=== PATIENT | female | born 2000 | race African-American/Black ===

== ENCOUNTER 2021-11-06 18:40 | Observation (INO) | payer OTHER, SELFPAY ==
[2021-11-06 19:26] VITALS: BMI 18.5
--- NOTE | 2021-11-06 19:30 | PM.IMHP ---
H&P: HPI History of Present Illness Date/Time: 11/06/21 19:30 Chief Complaint: Pyelonephritis. Narrative: This is a pleasant 21-year-old female, 3 para 2, with history of urinary tract infections who is being directly admitted to the medical floor from the ER at [facility] for treatment of pyelonephritis. The reason for transfer is the hospitalist at the outside facility did not feel comfortable taking care of the patient as she is currently 7 weeks . About 2 weeks ago she developed nausea and vomiting which she initially attributed to a viral infection however her symptoms persisted and she had a positive home test last week. She continues to have daily issues with morning sickness however over the past couple of days she has also developed left-sided flank pain with urinary urgency and frequency. She was seen in the ER at [facility] today where she reportedly had a urinalysis consistent with UTI (results not available to me at this time) and with her exam findings there were concerns for pyelonephritis and she is being admitted in this setting. At the time my evaluation she is feeling a bit better after receiving a L of fluids at the outside hospital. She continues to have aching discomfort in the left flank and mid back. She has also been running a low-grade fever with intermittent chills and sweats. She has not been able to hold down much aside from some liquids and Jell-O. Review of Systems Review of Systems: Twelve systems were reviewed. No headache or neck ache. No cold or flu symptoms. No sick contacts. She denies chest pain and shortness of breath. No diarrhea. No vaginal bleeding. Except as documented, all other systems were reviewed and are negative. [facility] Past Medical History Medical History (Updated 11/06/21 @ 21:13 by Shiloh Amaral PA-C) No significant past medical history Surgical History Surgical History (Updated 11/06/21 @ 21:03 by Shiloh Amaral PA-C) No history of previous surgery Family History Family History (Updated 11/06/21 @ 21:04 by Shiloh Amaral PA-C) Other No significant family history Social History Social History (Updated 11/06/21 @ 21:05 by Shiloh Amaral PA-C) Social History: Surrogate decision maker: Abida Foughter, mother. Code status: Full code. Smoking status: Never smoker Second hand tobacco smoke exposure: No Alcohol intake: unknown Substance use type: marijuana Additional living arrangements comments: Lives in [place] with her fiance and 2 children. Additional occupation/education comments: Works at [employer]. Spiritual care concerns: No Meds Home Medications and Allergies Home Medications Medication Instructions Recorded Confirmed Type No Home Medications 11/06/21 11/06/21 History Allergies Allergy/AdvReac Type Severity Reaction Status Date / Time No Known Allergies Allergy Verified 11/06/21 19:57 Vital Signs Vital Signs - 24 hr 11/06/21 20:00 Temperature 100.4 F H Pulse Rate 83 Respiratory Rate 16 Blood Pressure 135/62 Pulse Oximetry 100 Exam Narrative: General: Well-developed female supine in bed. Weight: 53.6 kg. BMI: 18.5. HEENT: PERRL, EOMI. Sclerae anicteric. Tacky mucous membranes. Neck: Supple. Respiratory: Lungs are clear to auscultation bilaterally. Cardiovascular: Regular rate and rhythm with S1-S2. Gastrointestinal: Abdomen is soft, nontender, and nondistended with positive bowel sounds. Left-sided CVA tenderness. Skin: Warm and dry. No rash or lesions on limited exam. Extremities: No cyanosis, clubbing, or edema. Radial and pedal pulses intact. Neurological: Alert. Cranial nerves 2-12 are grossly intact. No gross focal deficits to casual conversation. Psychiatric: Pleasant and cooperative with normal mood and affect. Judgment and insight intact. H&P: Results Labs Labs: Labs obtained at outside facility: White blood cells 11.6, hemoglobin 12.
[2021-11-06 19:38] VITALS: BMI 18.5
[2021-11-06 20:00] VITALS: BP 135/62; PULSE 83; RESP 16; TEMP 38; O2SAT 100
[2021-11-06] MEDS: ACETAMINOPHEN 325 MG TABLET 650 MG PO (21:08)
[2021-11-06] MEDS: THIAMINE HCL INJ 100 MG, FOLIC ACID INJ 1 MG, MULTIVITAMINS-12 INJ VIAL 1 5 ML, MULTIVI... IV CONT (21:49)
[2021-11-06 22:00] VITALS: BP 109/62; PULSE 70; RESP 16; TEMP 37.2; O2SAT 100
[2021-11-07] MEDS: ONDANSETRON INJ 4 MG/2 ML VIAL IV PUSH ×2 (02:52→15:53)
[2021-11-07 06:00] VITALS: BP 101/62; PULSE 76; RESP 16; TEMP 37.3; O2SAT 100
[2021-11-07 06:16] LABS: Hematocrit 33.4 % (37.0-47.0); Hemoglobin 11.5 g/dL (12.0-15.0); Mean Corpuscular HGB Conc 34.4 g/dl (32-36); Mean Corpuscular Hemoglobin 33.2 pg (26-34); Mean Corpuscular Volume 96.5 fl (80-100); Mean Platelet Volume 9.8 fl (7.4-10.4); Platelet Count Result 234 k/mm3 (150-375); Red Blood Count 3.46 M/mm3 (4.2-5.4); Red Cell Distribution Width 12.2 % (11.5-14.5); White Blood Count 9.1 K/mm3 (4.5-10.0)
[2021-11-07 06:27] LABS: Anion Gap 7 mmol/L (8-16); Blood Urea Nitrogen 6 mg/dL (7-17); Calcium 8.4 mg/dL (8.4-10.2); Carbon Dioxide 22 mmol/L (22-30); Chloride 105 mmol/L (98-107); Estimated CRCL calculation 126 ml/min; Estimated Glomerular Filt Rate > 60; Glucose 116 mg/dL (65-110); Magnesium 2.4 mg/dL (1.6-2.3); Potassium 3.7 mmol/L (3.4-5.0); Sodium 134 mmol/L (137-145)
[2021-11-07] MEDS: ACETAMINOPHEN 325 MG TABLET 650 MG PO (08:45)
--- NOTE | 2021-11-07 11:35 | PC.NURSE ---
At 1130 this am pt walked up to nurse's desk and asked the charge nurse if her nurse can come to the room. Charge nurse answered yes and pt walked back to room. Charge nurse told this nurse that pt was asking for her. At 1135 this nurse walked up to the pt room and found that her visitor and pt were arguing. I asked if I could help. Pt informed me that she wants visitor to leave and he was not leaving. I looked at patient visitor and stated, If she wants you to go, then you have to go. Pt visitor cried and protested to leaving. I repeated myself stating, You have to go. Pt visitor then left the area.
[2021-11-07 13:51] VITALS: BP 114/64; PULSE 88; RESP 16; TEMP 37.1; O2SAT 100
--- NOTE | 2021-11-07 14:48 | PM.IMHP ---
H&P: HPI History of Present Illness Date/Time: 11/07/21 14:48 [facility] Past Medical History Medical History (Updated 11/06/21 @ 21:13 by Shiloh Amaral PA-C) No significant past medical history Surgical History Surgical History (Updated 11/06/21 @ 21:03 by Shiloh Amaral PA-C) No history of previous surgery Family History Family History (Updated 11/06/21 @ 21:04 by Shiloh Amaral PA-C) Other No significant family history Social History Social History (Updated 11/06/21 @ 21:05 by Shiloh Amaral PA-C) Social History: Surrogate decision maker: Abida Foughter, mother. Code status: Full code. Smoking status: Never smoker Second hand tobacco smoke exposure: No Alcohol intake: unknown Substance use type: marijuana Additional living arrangements comments: Lives in [place] with her fiance and 2 children. Additional occupation/education comments: Works at [employer]. Spiritual care concerns: No Meds Home Medications and Allergies Home Medications Medication Instructions Recorded Confirmed Type No Home Medications 11/06/21 11/06/21 History Allergies Allergy/AdvReac Type Severity Reaction Status Date / Time No Known Allergies Allergy Verified 11/06/21 19:57 Vital Signs Vital Signs - 24 hr 11/06/21 20:00 11/06/21 22:00 11/07/21 06:00 Temperature 100.4 F H 98.9 F 99.1 F Pulse Rate 83 70 76 Respiratory Rate 16 16 16 Blood Pressure 135/62 109/62 101/62 Pulse Oximetry 100 100 100 11/07/21 13:51 Temperature 98.7 F Pulse Rate 88 Respiratory Rate 16 Blood Pressure 114/64 Pulse Oximetry 100 Exam Narrative: General: Well-developed female supine in bed. Weight: 53.6 kg. BMI: 18.5. HEENT: PERRL, EOMI. Sclerae anicteric. Tacky mucous membranes. Neck: Supple. Respiratory: Lungs are clear to auscultation bilaterally. Cardiovascular: Regular rate and rhythm with S1-S2. Gastrointestinal: Abdomen is soft, nontender, and nondistended with positive bowel sounds. Left-sided CVA tenderness. Skin: Warm and dry. No rash or lesions on limited exam. Extremities: No cyanosis, clubbing, or edema. Radial and pedal pulses intact. Neurological: Alert. Cranial nerves 2-12 are grossly intact. No gross focal deficits to casual conversation. Psychiatric: Pleasant and cooperative with normal mood and affect. Judgment and insight intact. H&P: Results Labs Labs: Short CBC 11/07/21 Range/Units 05:49 WBC 9.1 (4.5-10.0) K/mm3 Hgb 11.5 L (12.0-15.0) g/dL Hct 33.4 L (37.0-47.0) % Plt Count 234 (150-375) k/mm3 [facility] 11/07/21 05:49 Sodium 134 L Potassium 3.7 Chloride 105 Carbon Dioxide 22 BUN 6 L Creatinine 0.50 L Glucose 116 H Calcium 8.4 Assessment and Plan Assessment and plan (1) Pyelonephritis affecting in first trimester: Code(s): O23.01 - Infections of kidney in , first trimester Status: Acute Assessment and Plan: rocephin day 2, will switch to (2) Dehydration: Code(s): E86.0 - Dehydration Status: Acute Assessment and Plan: resolved Quality VTE Prophylaxis VTE prophylaxis: mechanical ordered
--- NOTE | 2021-11-07 15:27 | PM.DS ---
DS: Admitting Diagnosis Discharge Date November 07, 2021 Admitting Diagnosis Acute pyelonephritis in gravid female DS: Discharge Diagnosis Discharge Diagnosis (1) Pyelonephritis affecting in first trimester: Code(s): O23.01 - Infections of kidney in , first trimester Status: Acute (2) Dehydration: Code(s): E86.0 - Dehydration Status: Acute DS: Summary Hospital Course Hospital Course: 21-year-old female with history of UTIs presented to the [facility] ER and was found to have pyelonephritis. They requested transfer to our facility as the patient is and the hospitalist there did not feel comfortable taking care of her. Patient states she is approximately 7 weeks . She has had a 2 week history of nausea and vomiting without any associated fevers or chills. In the ER, she had a urinalysis consistent with UTI as well as CVA tenderness and was started on Rocephin and IV fluids. She does admit to significant nausea with her previous pregnancies, as well. This was continued at transfer. Her symptoms completely resolved. She was given a list of outpatient OB follow-up with and prescription for Keflex to complete a 7 day course of antibiotics. It is important that she follows up with her urine culture with an Ob as they may request antibiotic suppression for the remainder of her and frequent urine culture tests. Time Spent with Patient Time attestation: Total time spent providing and/or coordinating discharge services: Time spent: Less than 30 minutes Exam Const: General: no acute distress HENMT: Mouth: Yes moist mucous membranes Eyes: General: appearance normal, both eyes and all related structures Neck: Neck: no JVD Resp: Auscultation: clear to auscultation bilaterally Cardio: Rate: regular rate Rhythm: regular rhythm GI: Inspection: non-distended GI Palp: Yes Soft to palpation and No Tenderness to palpation present (GI) Psych: Speech and movement: Clear speech present Affect: Sad affect present Thought content: Yes Normal thought content present DS: Data Data Completed and Pending Labs on day of discharge: Labs from last 24 hours 11/07/21 11/07/21 11/06/21 05:49 05:49 21:01 WBC 9.1 RBC 3.46 L Hgb 11.5 L Hct 33.4 L MCV 96.5 MCH 33.2 MCHC 34.4 RDW 12.2 Plt Count 234 MPV 9.8 Sodium 134 L Potassium 3.7 Chloride 105 Carbon Dioxide 22 Anion Gap 7 L BUN 6 L Creatinine 0.50 L Estim Creat Clear Calc 126 Estimated GFR > 60 Glucose 116 H Calcium 8.4 Magnesium 2.4 H Beta HCG, Quant 90740.00 Discharge Plan Discharge Attending physician on discharge: Laura Meadows Discharging Clinician: Laura Meadows Anticipated Discharge Date/Time: 11/07/21 15:29 Patient Disposition: Home, Self-Care Activity: as tolerated Diet: as tolerated Discharge Instructions: Follow up with an OB as soon as possible, take your antibiotics until gone, and make sure someone follow up on your urine culture results from both [facility] and [facility]. Patient Instructions: Antibiotic Form Stand Alone Forms: General Discharge Information Follow-up/Referrals: Donavan Jimenez MD [Primary Care Provider] - Discharge Medications: New cephalexin 500 mg capsule 500 mg PO Q12H Qty: 20 RF: 0 Date of admission: 11/06/21 18:40 Primary Care Provider: Donavan Jimenez Admitting Provider: Carol Sebastian Attending physician on admission: Carol Sebastian Condition: Stable Quality VTE Prophylaxis VTE prophylaxis: mechanical ordered
== END 2021-11-07 18:10 | disposition home or self-care (01) ==
PROVIDERS: Physician Assistant; Admitting Provider Family Medicine; PCP Family Medicine Adolescent Medicine; Visit Provider Student in an Organized Health Care Education/Training Program
DX: O23.01 Infections of kidney in pregnancy, first trimester (principal); N12 Tubulo-interstitial nephritis, not specified as acute or chronic; O99.281 Endocrine, nutritional and metabolic diseases complicating pregnancy, first trimester; E86.0 Dehydration; Z3A.01 Less than 8 weeks gestation of pregnancy
CPT/HCPCS: 36415; 80048; 83735; 84702; 85027; 87040; 96365; 96366; 96368; 96375; 96376; A9270; G0378; G0379; J0696; J2405; J3411; J3475; J7121